=== PATIENT | male | born 1975 | race Two or more races ===

== ENCOUNTER 2021-03-14 07:32 | Emergency (ER) | payer OTHER ==
[~2021-03-14] VITALS: Ht 177.8 cm; Wt 77.1 kg
[2021-03-14] MEDS ORDERED: VAZALORE81 MG PO (07:44)
== END 2021-03-14 14:06 | disposition home or self-care (01) ==
LOC: ER 07:32
DX: N20.1 Calculus of ureter (principal)

== ENCOUNTER 2021-04-05 17:52 | Emergency (ER) | payer OTHER ==
[~2021-04-05] VITALS: Ht 177.8 cm; Wt 77.6 kg
[~2021-04-05 17:52] MED LIST: VAZALORE81 MG PO
[2021-04-05] MEDS ORDERED: CHILDREN'S ASPI81 MG PO (18:25)
[2021-04-05] MEDS ORDERED: LIPITOR40 M1 PO (18:25)
[2021-04-05] MEDS ORDERED: DOLOGEN 325-11 EACH PO (22:50)
== END 2021-04-05 23:25 | disposition home or self-care (01) ==
LOC: ER 17:52
DX: G43.909 Migraine, unspecified, not intractable, without status migrainosus (principal)

== ENCOUNTER 2021-08-28 10:15 | Emergency (ER) | payer OTHER ==
[~2021-08-28] VITALS: Ht 177.8 cm; Wt 78.5 kg
[~2021-08-28 10:15] MED LIST changes: +CHILDREN'S ASPI81 MG PO; +DOLOGEN 325-11 EACH PO; +LIPITOR40 M1 PO
== END 2021-08-28 14:52 | disposition home or self-care (01) ==
LOC: ER 10:15
DX: N13.2 Hydronephrosis with renal and ureteral calculous obstruction (principal); R10.9 Unspecified abdominal pain; K57.90 Diverticulosis of intestine, part unspecified, without perforation or abscess without bleeding

== ENCOUNTER 2022-03-16 09:20 | Emergency (ER) | payer OTHER ==
[~2022-03-16] VITALS: Ht 177.8 cm; Wt 87.5 kg
== END 2022-03-16 13:07 | disposition home or self-care (01) ==
LOC: ER 09:20
DX: N20.2 Calculus of kidney with calculus of ureter (principal); Z87.442 Personal history of urinary calculi; I20.9 Angina pectoris, unspecified

== ENCOUNTER 2022-06-28 14:56 | Emergency (ER) | payer OTHER ==
[~2022-06-28] VITALS: Ht 177.8 cm; Wt 77.1 kg
== END 2022-06-28 20:24 | disposition home or self-care (01) ==
LOC: ER 14:56
DX: M54.50 Low back pain, unspecified (principal); M51.36 Other intervertebral disc degeneration, lumbar region; Z87.442 Personal history of urinary calculi